=== PATIENT | female | born 1965 | race Caucasian/White ===

== ENCOUNTER 2017-05-04 05:15 | Day surgery (SDC) | payer BC, MEDICARE ==
[2017-04-23 16:44] LABS: HEMATOCRIT 41.2 % (36.0-48.0); HEMOGLOBIN 13.7 g/dL (12.0-16.0)
--- NOTE | ~2017-05-04 | OP ---
Record Of Operation [facility] [address] [place]. [address] NAME: REYMUNDO VALLADARES : 63 STATUS : REG [facility] PAT#: [id number] AGE: 52 ADM/REG DATE : 05/04/17 MR#: [id number] REPORT SERV DATE: 05/04/17 DICTATED BY: MARTHA CABRERA DATE: 05/04/17 REPORT STATUS : Draft TRANSCRIBED BY: MODLaura DATE: 05/04/17 DATE OF PROCEDURE: 05/04/2017 PREOPERATIVE DIAGNOSIS: Left adhesive capsulitis, rheumatoid arthritis, acromioclavicular pain, and biceps tendinitis. POSTOPERATIVE DIAGNOSIS: Left adhesive capsulitis, rheumatoid arthritis, acromioclavicular pain, and biceps tendinitis. PROCEDURE: Left extensive debridement and capsular release, NAKUL, biceps tenodesis, AC resection, intra-articular and subacromial injection of Medrol. COMPLICATIONS: None. ANESTHESIA: General endotracheal with regional block. INDICATIONS: This is a 52-year-old female, who had very longstanding severe pain in the shoulder with frozen shoulder presentation. She had failed extensive nonoperative management. She had other medical comorbidities as well as an inflammatory arthropathy. We discussed the natural history here and she wished to proceed with operative intervention after discussion of the above. DESCRIPTION OF PROCEDURE: The patient was induced in supine position. She was taken to the beach-chair position with care maintain the cervical lordosis. A time-out protocol was enforced. Ancef was administered. We examined under anesthesia. She had about 40 degrees of ER and 95 of forward flexion. We went ahead and manipulated her and got her up to 175 forward flexion, and 90 of external rotation, and 80 of internal rotation, and abduction prior to the introduction of the scope sheath. Posterolateral portal was then created for diagnostic arthroscopy, which revealed no negative arthritis, severe hyperemia throughout the rotator cuff, partial small tear anteriorly, severe extra-articular biceps tenosynovitis, very metaplastic and stiff rotator interval, and the middle glenohumeral ligament, consistent with capsulitis, a very stiff coracoid humeral ligament, and metaplastic biceps sheath, and AC bone spurs. Capsular release and extensive debridement, a 5.5 cannula was localized with an outside-in spinal needle technique. We released the biceps and allowed it to retract. We copiously debrided with the ablator at the rotator interval, ablating all of the tissues. The middle glenohumeral ligament was then released and at this was clearly an abnormal compliance and we were able to release that, it was quite tough ligaments. We then went down to the inferior glenohumeral ligament and we then looked from anteriorly, and released the posterior capsule as well with the ablator, and this opened up the shoulder, so that we could get a more of a drive-through sign than she had prior. We then went to subacromial space and performed a copious bursectomy from posteriorly and laterally, and released the Record Of Operation [facility] [address] [place]. [address] NAME: REYMUNDO VALLADARES : 63 STATUS : REG [facility] PAT#: [id number] AGE: 52 ADM/REG DATE : 05/04/17 MR#: [id number] REPORT SERV DATE: 05/04/17 DICTATED BY: MARTHA CABRERA DATE: 05/04/17 REPORT STATUS : Draft TRANSCRIBED BY: LEILA DATE: 05/04/17 coracohumeral ligament and the remaining rotator interval. We again opened up the biceps sheath and debrided this severely metaplastic and dystrophic biceps sheath. AC resection: Attention was then turned to the resection of the AC joint. Looking from posteriorly, the compartment of the AC joint was entered and a laterally placed tissue ablator was utilized to debride fat and coagulate bleeders under the AC joint. A bur was introduced and the undersurface of the AC joint was co-planed from lateral to medial. Palpation on the clavicle allowed visualization of the AC joint and disc. A spinal needle directed from anteriorly allowed localization of the AC joint and a 12-flute bur was introduced anteriorly. This bur was utilized to resect approximately 1 cm on the clavicle from anterior to posterior. 2mm were then taken off the acromial side. Care was taken to insure that a level cut was made at the anterior and posterior junctions of the AC joint and the anterior and posterior AC ligaments were recessed prior to this with a tissue ablator preserving their structure. The scope was then placed in the lateral portal and again the AC joint was visualized anteriorly and posteriorly with inferiorly directed pressure insuring an adequate superior decompression. The posterior aspect of the joint was then checked with a scope in the anterior portal and an accessory posterior portal was created and utilized to recess the posterior spur with a bur. No [id number] contact at the AC joint was present after resection. Biceps tenodesis: The biceps was brought out to length from posteriorly and double-loaded Lupine was placed, interlocking Arvin-Ray sutures in the super pectoral location were placed around the tendon, and this was then tied at a satisfactory length tension relationship. Intra-articular visualization was used with a spinal needle to inject 80 of Medrol intra and extra-articularly in the subacromial space, due to the severe hyperemia in both locations. The scope was withdrawn. Portals were closed with Monocryl. Steri-Strips were applied. The patient tolerated the procedure well and was taken to PACU in stable condition. POSTOPERATIVE PLAN: Early range of motion of the shoulder in therapy beginning tomorrow, biceps protection for four weeks. BSS/MODL Martha Cabrera M.D. / [id number] CC: Yogi Thomas M.D.
[~2017-05-04 05:15] MED LIST: ALSUMA6 MG/0.5 M SQ; DEPAKOT500 PO; EXCEDRIN EXTRA1 EACH PO; MELATONIN10 M2 PO; NEUR300 PO; PLAQ200B PO; PRILOSEC40 MG PO; TOPAMAX100 PO; XANAX2 MG PO
== END 2017-05-04 16:32 | disposition home or self-care (01) ==
LOC: SDC 05:15
PROVIDERS: Orthopaedic Surgery Sports Medicine
PROC: 0RBK4ZZ Excision of Left Shoulder Joint, Percutaneous Endoscopic Approach (ICD-10-PCS; 2017-05-04)
PROC: 0RSKXZZ Reposition Left Shoulder Joint, External Approach (ICD-10-PCS; 2017-05-04)
PROC: 0RNK4ZZ Release Left Shoulder Joint, Percutaneous Endoscopic Approach (ICD-10-PCS; principal; 2017-05-04 07:00)
PROC: 0LS44ZZ Reposition Left Upper Arm Tendon, Percutaneous Endoscopic Approach (ICD-10-PCS; 2017-05-04 07:00)
DX: M75.02 Adhesive capsulitis of left shoulder (principal); M06.9 Rheumatoid arthritis, unspecified; M75.22 Bicipital tendinitis, left shoulder; K21.9 Gastro-esophageal reflux disease without esophagitis; G40.909 Epilepsy, unspecified, not intractable, without status epilepticus; G43.909 Migraine, unspecified, not intractable, without status migrainosus; M32.9 Systemic lupus erythematosus, unspecified; M79.7 Fibromyalgia; M81.0 Age-related osteoporosis without current pathological fracture; F17.210 Nicotine dependence, cigarettes, uncomplicated; Z91.048 Other nonmedicinal substance allergy status; Z86.73 Personal history of transient ischemic attack (TIA), and cerebral infarction without residual deficits; Z90.710 Acquired absence of both cervix and uterus; Z90.49 Acquired absence of other specified parts of digestive tract; Z90.722 Acquired absence of ovaries, bilateral; Z90.89 Acquired absence of other organs; Z79.82 Long term (current) use of aspirin; Z79.899 Other long term (current) drug therapy; Z98.890 Other specified postprocedural states
CPT/HCPCS: 85014; 85018; 88304; 93005; A9270-GY; C1713; J0690; J1030; J2250; J2405; J2550; J2710; J2795; J3010